=== PATIENT | female | born 1960 | race Caucasian/White ===

== ENCOUNTER 2017-08-08 08:32 | Outpatient (CLI) | payer MEDICARE, OTHER | END 2017-08-08 08:33 | disposition home or self-care (01) | LOC: BICULT 08:32 | PROVIDERS: ATTEND Specialist | DX: E16.2 Hypoglycemia, unspecified (principal); K76.0 Fatty (change of) liver, not elsewhere classified | CPT/HCPCS: 76700 ==

== ENCOUNTER 2017-10-17 19:52 | Emergency (ER) | payer MEDICARE, OTHER ==
--- NOTE | 2017-10-17 21:02 | RAD ---
RIGHT WRIST THREE VIEW 10/17/17 INDICATION: Fall, pain. FINDINGS: There is a circumscribed cystic lucency at the distal ulna. No acute fracture seen. 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 IMPRESSION: No acute osseous abnormality of the right wrist. Cystic structure at the distal ulna which does not demonstrate radiographic appearance of aggressive features. POS: [facility]
--- NOTE | 2017-10-17 21:03 | RAD ---
TWO VIEW RIGHT HIP 10/17/17 INDICATION: Fall, pain and injury. FINDINGS: there is no fracture or dislocation of the right hip. There is a metallic clip overlying the right he mipelvis as well as phleboliths. Scattered osseous degenerative change present. IMPRESSION: No acute fracture of the right hip. POS: [facility]
--- NOTE | 2017-10-17 21:05 | RAD ---
RIGHT KNEE FOUR VIEWS: 10/17/17 INDICATION: Pain. Injury. FINDINGS: There is a right knee prosthesis without hardware complication. No significant joint capsular distent ion or acute fracture identified. There is chronic appearing osseous deformity of the visualized prox imal diaphysis of the fibula. IMPRESSION: No acute osseous abnormality of the postoperative right knee. POS: [facility]
[2017-10-17] MEDS ORDERED: Ketorolac Tromethamine 60 MG/2 ML VIAL ONE (21:46)
== END 2017-10-17 22:18 | disposition home or self-care (01) ==
LOC: ERS 19:52
DX: M25.561 Pain in right knee (principal); M25.531 Pain in right wrist; E11.9 Type 2 diabetes mellitus without complications; E78.5 Hyperlipidemia, unspecified; I10 Essential (primary) hypertension; F41.9 Anxiety disorder, unspecified; Z79.899 Other long term (current) drug therapy; V87.8XXA Person injured in other specified noncollision transport accidents involving motor vehicle (traffic), initial encounter
CPT/HCPCS: 96372; J1885

== ENCOUNTER 2018-04-13 08:47 | Outpatient (CLI) | payer MEDICARE, MEDICAID | END 2018-04-13 08:48 | disposition home or self-care (01) | LOC: BICMAMMO 08:47 | PROVIDERS: ATTEND Specialist | DX: Z12.31 Encounter for screening mammogram for malignant neoplasm of breast (principal); R92.1 Mammographic calcification found on diagnostic imaging of breast | CPT/HCPCS: 77063; 77067 ==

== ENCOUNTER 2018-04-28 09:15 | Outpatient (CLI) | payer MEDICARE, MEDICAID ==
--- NOTE | 2018-04-28 13:55 | NM ---
THREE PHASE BONE SCAN: INDICATIONS: History of tailbone fracture three years ago and right knee replacement four years ago, with concern for pain related to the patient's right total knee prosthesis. COMPARISON: Prior radiograph of the right knee dated 10/17/2017. RADIOPHARMACEUTICAL: 33 millicuries technetium 99m MDP IV was utilized. FINDINGS: There is slightly increased blood flow and periarticular blood pooling on delayed phase images surrou nding the right total knee replacement. There is some asymmetric medial femoral tibial joint compart mental activity involving the left knee. Mild degenerative activity is seen involving the AC joint s pine, as well as the feet. IMPRESSION: 1. Positive three phase bone scan surrounding the right knee. Differential considerations include i nflammatory change from aseptic loosening or potentially infection. Septic arthritis of the right kn ee joint. Recommend repeat radiograph of the right knee. A radionuclide leveled white blood cell sc an and Tecnithium sulfur colloid study may be helpful for further characterization. 2. Scattered degenerative change, as above. POS: [facility]
== END 2018-04-28 09:16 | disposition home or self-care (01) ==
LOC: NM 09:15
PROVIDERS: ATTEND Specialist
DX: T84.84XA Pain due to internal orthopedic prosthetic devices, implants and grafts, initial encounter (principal); M13.861 Other specified arthritis, right knee
CPT/HCPCS: 78315; A9503

== ENCOUNTER 2019-09-07 07:49 | Outpatient (CLI) | payer MEDICARE, MEDICAID ==
--- NOTE | 2019-09-07 08:14 | MMO ---
Bilateral MAMMO Bilat Screen [facility]. CLINICAL HISTORY: Patient is 59 years old and is seen for screening. The patient has no family history of breast cancer. The patient has no personal history of cancer. VIEWS: The views performed were: bilateral craniocaudal with tomosynthesis and bilateral mediolateral oblique with tomosynthesis. FILMS COMPARED: The present examination has been compared to prior imaging studies performed at [facility] on 07/27/2013, 08/12/2014, 02/13/2016 and 04/13/2018. This study has been interpreted with the assistance of computer-aided detection. MAMMOGRAM FINDINGS: There are scattered fibroglandular densities. Benign calcifications are noted bilaterally. There are no suspicious masses, suspicious calcifications, or new areas of architectural distortion. IMPRESSION: THERE IS NO MAMMOGRAPHIC EVIDENCE OF MALIGNANCY. A ROUTINE FOLLOW-UP MAMMOGRAM IN 1 YEAR IS RECOMMENDED. THE RESULTS OF THIS EXAM WERE SENT TO THE PATIENT. ACR BI-RADS Category 2 - Benign finding MAMMOGRAPHY NOTE: 1. A negative mammogram report should not delay a biopsy if a dominant of clinically suspicious mass is present. 2. Approximately 10% to 15% of breast cancers are not detected by mammography. 3. Adenosis and dense breasts may obscure an underlying neoplasm. Reported by: KIMMY ALVAREZ MD Electonically Signed: [id number]
== END 2019-09-07 07:50 | disposition home or self-care (01) ==
LOC: BICMAMMO 07:49
PROVIDERS: ATTEND Family Medicine
DX: Z12.31 Encounter for screening mammogram for malignant neoplasm of breast (principal)
CPT/HCPCS: 77063; 77067

== ENCOUNTER 2020-09-12 09:55 | Outpatient (CLI) | payer MEDICARE, MEDICAID ==
--- NOTE | 2020-09-12 10:51 | BD ---
DEXA BONE MINERAL DENSITY STUDY: HISTORY: Osteoporosis screening. COMPARISON: None. FINDINGS: Lumbar Spine: BMD (g/cm2) L1 0.867 T-Score: -1.1 0.1 L2 0.924 T-Score: -0.9 0.4 L3 1.140 T-Score: 0.5 2.0 L4 1.065 T-Score: 0.0 1.5 L1-L4 1.006 T-Score: -0.4 1.0 Femoral Neck: 0.788 T-Score: -0.6 0.7 Total Femur: 1.047 T-Score: 0.9 1.8 WHO Classification: Normal. Impression: Normal bone mineral density. POS: [facility]
--- NOTE | 2020-09-12 10:52 | MMO ---
Bilateral MAMMO Bilat Screen [facility]. CLINICAL HISTORY: Patient is 60 years old and is seen for screening. The patient has no family history of breast cancer. The patient has no personal history of cancer. VIEWS: The views performed were: bilateral craniocaudal with tomosynthesis and bilateral mediolateral oblique with tomosynthesis. FILMS COMPARED: The present examination has been compared to prior imaging studies performed at [facility] on 08/12/2014, 02/13/2016, 04/13/2018 and 09/07/2019. This study has been interpreted with the assistance of computer-aided detection. MAMMOGRAM FINDINGS: There are scattered fibroglandular densities. There are no suspicious masses, suspicious calcifications, or new areas of architectural distortion. IMPRESSION: THERE IS NO MAMMOGRAPHIC EVIDENCE OF MALIGNANCY. A ROUTINE FOLLOW-UP MAMMOGRAM IN 1 YEAR IS RECOMMENDED. THE RESULTS OF THIS EXAM WERE SENT TO THE PATIENT. ACR BI-RADS Category 1 - Negative MAMMOGRAPHY NOTE: 1. A negative mammogram report should not delay a biopsy if a dominant of clinically suspicious mass is present. 2. Approximately 10% to 15% of breast cancers are not detected by mammography. 3. Adenosis and dense breasts may obscure an underlying neoplasm. Reported by: JORGE A WOOD MD Electonically Signed: [id number]
== END 2020-09-12 09:56 | disposition home or self-care (01) ==
LOC: BICMAMMO 09:55
PROVIDERS: ATTEND Student in an Organized Health Care Education/Training Program
DX: Z12.31 Encounter for screening mammogram for malignant neoplasm of breast (principal); Z13.820 Encounter for screening for osteoporosis; Z78.0 Asymptomatic menopausal state
CPT/HCPCS: 77063; 77067; 77080

== ENCOUNTER 2021-01-22 10:48 | Emergency (ER) | payer MEDICARE, MEDICAID | END 2021-01-22 11:51 | disposition home or self-care (01) | LOC: ERS 10:48 | DX: M25.422 Effusion, left elbow (principal); E11.9 Type 2 diabetes mellitus without complications; E78.5 Hyperlipidemia, unspecified; E78.00 Pure hypercholesterolemia, unspecified; I10 Essential (primary) hypertension; Z79.899 Other long term (current) drug therapy; Z79.1 Long term (current) use of non-steroidal anti-inflammatories (NSAID) ==

== ENCOUNTER 2022-08-21 07:55 | Outpatient (CLI) | payer OTHER, MEDICAID | END 2022-08-21 07:56 | disposition home or self-care (01) | LOC: BICMAMMO 07:55 | PROVIDERS: ATTEND Student in an Organized Health Care Education/Training Program | DX: Z12.31 Encounter for screening mammogram for malignant neoplasm of breast (principal) | CPT/HCPCS: 77063; 77067 ==